=== PATIENT | male | born 1995 | race Two or more races ===

== ENCOUNTER → 2023-08-15 | Emergency (ER) | payer OTHER ==
[~2023-08-15] VITALS: Ht 182.9 cm; Wt 72.6 kg
[~2023-08-15] MED LIST: CEFTRIAXONE SODIUM 2,000 MG VIAL IM ONE; DICLOFENAC SODI75 MG PO; INTESTINEX680 M1 PO; LEVSIN/SL0.125 MG SL; ONDANSETRON ODT4 MG PO; PEPCID40 MG PO
== END | disposition home or self-care (01) ==
LOC: ER 09:02
DX: J03.90 Acute tonsillitis, unspecified (principal)